=== PATIENT | male | born 1940 | race Caucasian/White ===

== ENCOUNTER 2016-08-10 08:20 | Day surgery (SDC) | payer MEDICARE ==
--- NOTE | ~2016-08-10 | EGD ---
EGD REPORT [facility] [address] [address] NAME: MERVIN BEDOLLA : [birth year] STATUS : REG [facility]#: [id number] AGE: 76 ADM/REG DATE : 08/10/16 MR#: [id number] REPORT SERV DATE: 08/10/16 DICTATED BY: MECCA BHATIA DATE: 08/10/16 REPORT STATUS : Draft TRANSCRIBED BY: [employer] DATE: 08/10/16 [facility] Patient Name: Mervin Bedolla Date of : 1940 Attending MD: MECCA BHATIA MD Procedure Date No Time: 08/10/2016 Procedure: Colonoscopy Indications: High risk colon cancer surveillance: Personal history of colonic polyps Referring MD: SOWMYA BALTAZAR MD Medicines: as per anesthesia Complications: No immediate complications. Procedure: After I obtained informed consent, the scope was passed under direct vision. Throughout the procedure, the patient's blood pressure, pulse, and oxygen saturations were monitored continuously. The PCF [id number] was introduced through the anus and advanced to the sigmoid colon. The colonoscopy was somewhat difficult due to multiple diverticula in the colon, restricted mobility of the colon, significant looping and a tortuous colon. The patient tolerated the procedure. The quality of the bowel preparation was fair. Findings: The perianal and digital rectal examinations were normal. Multiple small and large-mouthed diverticula were found in the sigmoid colon. pt vomited exam stopped Impression: - Diverticulosis in the sigmoid colon. Recommendation: - Perform an air contrast barium enema. Procedure Code(s): --- Professional --- 46175, 52, Colonoscopy, flexible, proximal to splenic flexure; diagnostic, with or without collection of specimen(s) by brushing or washing, with or without colon decompression (separate procedure) Diagnosis Code(s): --- Professional --- K57.30, Diverticulosis of large intestine without perforation or abscess without bleeding Z86.010, Personal history of colonic polyps [address]GD [address] [facility] [place] [address] NAME: MERVIN BEDOLLA : [birth year] STATUS : REG [facility]#: [id number] AGE: 76 ADM/REG DATE : 08/10/16 MR#: [id number] REPORT SERV DATE: 08/10/16 DICTATED BY: MECCA BHATIA. DATE: 08/10/16 REPORT STATUS : Draft TRANSCRIBED BY: [email or web address] DATE: 08/10/16 CPT copyright 2013 [employer]. All rights reserved. The codes documented in this report are preliminary and upon turner and former automatic review may be revised to meet current compliance requirements. MECCA BHATIA MD 08/10/2016 12:10 PM This report has been signed electronically. Number of Addenda: 0 Note Initiated On: 08/10/2016 11:[address] [place], [place] [address] [address]
[~2016-08-10 08:20] MED LIST: ADVIL PO; ASAB PO; ASTELIN NAS; CENTRUM SILVER MEN PO; COZ25 PO; COZAAR100 MG PO; DIL2TAB PO; FLUOROURACIL51 EX; GLUCOPHAGE1000 MG PO; GLUCOTROL5 PO; GLUCPH8 PO; GLUCXL10 PO; LIPITOR10 PO; LIPITOR40 PO; LOPID6 PO; MAX25 PO; MULTIPLE VIT PO; NORV25 PO; NORV5 PO; OXYCON10; SYN.05 PO; VIST25 PO; ZYRTEC ALLGY10 MG PO
== END 2016-08-10 23:59 | disposition home health service (06) ==
LOC: DMU 08:20
PROVIDERS: Internal Medicine Gastroenterology
PROC: 0DJD8ZZ Inspection of Lower Intestinal Tract, Via Natural or Artificial Opening Endoscopic (ICD-10-PCS; principal; 2016-08-10 10:00)
DX: Z12.11 Encounter for screening for malignant neoplasm of colon (principal); K57.30 Diverticulosis of large intestine without perforation or abscess without bleeding; I10 Essential (primary) hypertension; I25.10 Atherosclerotic heart disease of native coronary artery without angina pectoris; J44.9 Chronic obstructive pulmonary disease, unspecified; G47.33 Obstructive sleep apnea (adult) (pediatric); E78.00 Pure hypercholesterolemia, unspecified; E11.9 Type 2 diabetes mellitus without complications; Z86.010 Personal history of colon polyps; Z87.891 Personal history of nicotine dependence; Z99.89 Dependence on other enabling machines and devices; M19.90 Unspecified osteoarthritis, unspecified site; Z90.49 Acquired absence of other specified parts of digestive tract; Z98.890 Other specified postprocedural states
CPT/HCPCS: 82962; 94640; A9270-GY